=== PATIENT | male | born 1965 | race Caucasian/White ===

== ENCOUNTER → 2016-11-03 07:47 | Outpatient (CLI) | payer MEDICARE, MEDICAID | END | disposition home or self-care (01) | LOC: D.NM 07:47 | DX: S42.471A Displaced transcondylar fracture of right humerus, initial encounter for closed fracture (principal); S82.872A Displaced pilon fracture of left tibia, initial encounter for closed fracture ==

== ENCOUNTER → 2016-11-14 11:33 | Outpatient (CLI) | payer MEDICARE, MEDICAID ==
[2016-11-14 12:00] LABS: BASOPHILS 0.3 % (0-2); EOSINOPHILS 0.7 % (0-7); HEMATOCRIT 40.1 % (42.0-54.0); LYMPHOCYTES 25.3 % (15-50); MCH 32.3 pg (26.0-34.0); MCHC 32.4 g/dL (31.0-37.0); MCV 99.8 fL (80.0-100.0); MEAN PLATELET VOLUME 10.4 fL (7.4-10.4); MONOCYTES 9.3 % (2-11); NEUTROPHILS 64.4 % (40-80); PLATELET COUNT 146 10x3/uL (130-400); RBC 4.02 10x6/uL (4.20-6.10); RDW 13.7 % (11.5-14.5); WBC 5.9 10x3/uL (4.8-10.8)
[2016-11-14 13:15] LABS: ERYTHROCYTE SEDIMENTATION RATE 46 mm/hr (0-20)
== END | disposition home or self-care (01) ==
LOC: D.LAB 11:33
PROVIDERS: Orthopaedic Surgery
DX: M25.521 Pain in right elbow (principal)